=== PATIENT | female | born 1995 | race Caucasian/White ===

== ENCOUNTER 2023-02-16 13:44 | Emergency (ER) | payer BC, SELFPAY ==
[2023-02-16 13:46] VITALS: BP 115/53; PULSE 79; RESP 18; TEMP 36.8; O2SAT 98
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
== END 2023-02-16 16:31 | disposition home or self-care (01) ==
PROVIDERS: Emergency Provider Nurse Practitioner Family
DX: S60.212A Contusion of left wrist, initial encounter (principal); X58.XXXA Exposure to other specified factors, initial encounter
CPT/HCPCS: 29125; 81025; 99283